=== PATIENT | female | born 1985 | race Two or more races ===

== ENCOUNTER → 2020-07-09 12:55 | Outpatient (BNVA) | payer OTHER, SELFPAY | PROVIDERS: PCP Internal Medicine; Referring Provider Internal Medicine; Visit Provider Advanced Practice Midwife | DX: R35.0 Frequency of micturition (principal); N94.4 Primary dysmenorrhea; Z30.02 Counseling and instruction in natural family planning to avoid pregnancy | CPT/HCPCS: 99202 ==